=== PATIENT | male | born 1955 | race Caucasian/White ===

== ENCOUNTER 2018-06-20 06:03 | Day surgery (SDC) | payer OTHER ==
--- NOTE | 2018-04-27 14:28 | HP ---
DATE OF ADMISSION: 06/20/2018 DATE OF DICTATION: 12/19/2017 Patient to be admitted through the [facility] in the near future, date to be determined. HISTORY: This is a 62-year-old man admitted to the [facility] for bilateral component separation repair of complex, incarcerated ventral hernia with mesh. Patient has gone on over the course of the past year to develop an enlarging hernia involving the central ring of the abdomen. After bringing this to the attention of his PMD, he was referred for definitive management. No underlying GI, , or respiratory complaints to suggest disposition to hernia formation. PAST MEDICAL HISTORY: Significant for hypertension. No history of heart disease, diabetes, respiratory, renal, or hepatic insufficiency. PAST SURGICAL HISTORY: Nil. ALLERGIES: None known. REGULAR MEDICATIONS: /Exforge , baby aspirin. SOCIAL HISTORY: Negative tobacco. Patient did smoke up until 2004. Positive alcohol, 4 drinks daily. Occasional marijuana. FAMILY HISTORY: Father . No specific medical history. Mother age 89, history of heart disease. Siblings x3 in good health. REVIEW OF SYSTEMS: No. PHYSICAL EXAMINATION: The patient examined in the erect and supine position. There is an obvious hernia involving the central ring of the abdomen, extending up into the midline. It is irreducible. The abdomen is soft, nontender otherwise. The groins are intact. IMPRESSION: Chronically incarcerated ventral hernia. PLAN: Bilateral component separation repair of chronically incarcerated ventral hernia with mesh. Indications, alternatives, possible complications reviewed. Consent obtained. Issues concerning the mesh reviewed at length with patient as well. Patient to be seen preoperatively by Dr. Marielena Mills of the Medical Service. Please refer to her notes for those medical details. DAVID BLUNT M.D. [id number]
[2018-06-14 14:56] VITALS: BMI 26.6
--- NOTE | 2018-06-19 12:45 | PREOP ---
DATE OF ADMISSION: 06/20/2018 HISTORY: A 62-year-old man admitted to the hospital for repair of chronically incarcerated ventral hernia with mesh. PAST MEDICAL HISTORY: Unchanged and only significant for hypertension. PAST SURGICAL HISTORY: Nil. ALLERGIES: None known. REGULAR MEDICATIONS: Exforge/baby aspirin. SOCIAL HISTORY: Negative tobacco. Positive alcohol, 4 drinks daily. Occasional marijuana. FAMILY HISTORY: Father . No medical history apparent. Mother age 89, history of heart disease. Siblings well. REVIEW OF SYSTEMS: Nil. PHYSICAL EXAMINATION: Abdomen: Patient examined in the supine position and an obvious hernia involving the center of the abdomen, standing up in the midline. It is irreducible. The abdomen is soft and nontender otherwise. Groins intact. IMPRESSION: Chronically incarcerated ventral hernia. PLAN: Reduction and repair of chronically incarcerated ventral hernia with mesh. Indications, alternatives, and possible complications were reviewed. Consent obtained. Patient to be seen preoperatively by Dr. Marielena Mills of the medical service. Please refer to her notes for those medical details. DAVID BLUNT M.D. [id number]
[2018-06-20] MEDS ORDERED: SUCCINYLCHOLINE CHLORIDE 200 MG/10 ML VIAL ONE (08:19)
[2018-06-20] MEDS ORDERED: ROCURONIUM BROMIDE 50 MG/5 ML VIAL ONE (08:19)
[2018-06-20] MEDS ORDERED: PROPOFOL 20 ML ONE ×2 (08:19)
[2018-06-20] MEDS ORDERED: ONDANSETRON 4 MG/2 ML VIAL ONE (08:25)
[2018-06-20] MEDS ORDERED: ceFAZolin SODIUM 1 GM VIAL ONE (08:34)
[2018-06-20] MEDS ORDERED: HYDROmorphone HCL/PF 1 MG/ML AMP ONE (08:36)
[2018-06-20] MEDS ORDERED: NEOSTIGMINE METHYLSULFATE 0.5 MG/ML - 10 ML MDV ONE (09:23)
[2018-06-20] MEDS ORDERED: GLYCOPYRROLATE 0.2 MG/1 ML VIAL ONE (09:23)
[2018-06-20] MEDS ORDERED: FAMOTIDINE 20 MG TABLET PO SCH ×2 (10:00→12:45)
[2018-06-20] MEDS ORDERED: ACETAMINOPHEN INJECTION 100 ML IVPB ONE (10:04)
[2018-06-20] MEDS ORDERED: KETOROLAC TROMETHAMINE 30 MG/1 ML VIAL ONE (10:05)
[2018-06-20] MEDS ORDERED: oxyCODONE HCL 5 MG TABLET PO PRN (10:07)
[2018-06-20] MEDS ORDERED: KETOROLAC TROMETHAMINE 15 MG/ML VIAL IVPB PRN (10:08)
[2018-06-20] MEDS ORDERED: ACETAMINOPHEN 1000 MG/100 ML VIAL (NON FORMULARY) IVPB ONE (10:30)
[2018-06-20] MEDS ORDERED: ONDANSETRON 4 MG/2 ML VIAL IVPUSH PRN (10:33)
--- NOTE | 2018-06-20 10:43 | OP ---
DATE OF OPERATION: 06/20/2018 PREOPERATIVE DIAGNOSIS: Incarcerated ventral hernia. POSTOPERATIVE DIAGNOSIS: Incarcerated ventral hernia. PROCEDURE: Open reduction and repair of chronically incarcerated ventral hernia with mesh/intermediate wound closure (5 cm). OPERATING SURGEON: Geoffrey Patel M.D. CAT CRACKER OPERATOR: Chava Munroe D.O. ANESTHESIA: Kemi Castro M.D. (general) HISTORY: This is a 62-year-old man who presents for repair of a rather longstanding chronically incarcerated ventral hernia involving the central ring of the abdomen and the lower supraumbilical midline. Indications, alternatives and possible complications were reviewed. Consent obtained. PROCEDURE: With the patient in the supine position, after general anesthesia, the abdomen was prepped and draped in the usual sterile fashion using chlorhexidine. A 5-cm infraumbilical incision was made and deepened into the subcutaneous space. The hernia sac was identified. The overlying skin and the umbilicus freed from the hernia sac at the central ring. The subcutaneous tissues were mobilized in the superior direction exposing the entire sac and defect. The fascial ring was incised circumferentially sharply. The hernia sac along with its fatty contents were reduced. The preperitoneal space was then developed circumferentially using sharp dissection, creating enough space for placement of an underlay mesh. After adequate hemostasis an 8-cm Bard Ventralex hernia patch was selected for the repair. It was placed in the preperitoneal/retrorectus space and pulled up against the undersurface of the anterior abdominal wall musculature using its straps. After the mesh was adequately placed in terms of position, the mesh was fixed to the overlying rectus muscle circumferentially using an AbsorbaTacker and counterpalpation. Irrigation and adequate hemostasis again checked. The fascia was then closed using a 0 PDS suture, beginning at each end of the defect with the suture ultimately tied at the midpoint, leaving the mesh entirely in the retrorectus/preperitoneal space. The subcutaneous tissues were then irrigated and adequate hemostasis ensured. The surface of the umbilicus was tacked to the fascia below the . The 5-cm wound was then closed in layers. The subcutaneous tissues were approximated using interrupted 3-0 chromic suture. Subcuticular layer was approximated using interrupted 4-0 Biosyn suture. The skin edges were closed using 4-0 Biosyn in the subcuticular space in continuous fashion. Dermabond applied. Procedure terminated. NEEDLE, SPONGE AND INSTRUMENT COUNT: Correct. ESTIMATED BLOOD LOSS: Minimal. SPECIMEN: None. DRAINS: None. Patient tolerated the procedure. The procedure was terminated. Bea [id number] MTDD
[2018-06-20] MEDS ORDERED: LACTATED RINGERS SOLUTION 1,000 ML IV SCH (10:45)
[2018-06-20 16:26] VITALS: BP 131/74; PULSE 61; TEMP 98
== END 2018-06-20 16:20 | disposition home or self-care (01) ==
LOC: FASU 06:03
PROVIDERS: ATTEND Surgery
PROC: 0WUF0JZ Supplement Abdominal Wall with Synthetic Substitute, Open Approach (ICD-10-PCS; principal; 2018-06-20 08:41)
DX: K43.6 Other and unspecified ventral hernia with obstruction, without gangrene (principal); I10 Essential (primary) hypertension
CPT/HCPCS: 94760; J0131